=== PATIENT | female | born 1980 | race Native Hawaiian/Other Pacific Islander ===

== ENCOUNTER 2023-03-23 17:46 | Emergency (ER) | payer OTHER ==
[~2023-03-23] VITALS: Ht 154.9 cm; Wt 68.0 kg
[2023-03-23 18:04] LABS: BASOPHILS % (AUTO) 0 % (0-10); EOSINOPHILS # (AUTO) 0.1 10^3/uL (0.0-0.3); EOSINOPHILS % (AUTO) 1 % (0-10); HEMATOCRIT 39 % (35-52); LYMPHOCYTES # (AUTO) 2.5 10^3/uL (1.0-4.0); LYMPHOCYTES % (AUTO) 33 % (12-44); MEAN CORPUSCULAR HEMOGLOBIN 32 pg (25-34); MEAN CORPUSCULAR HGB CONC 34 g/dL (32-36); MEAN CORPUSCULAR VOLUME 95 fL (80-99); MEAN PLATELET VOLUME 8.6 fL (9.0-12.2); MONOCYTES # (AUTO) 0.5 10^3/uL (0.0-1.0); MONOCYTES % (AUTO) 6 % (0-12); NEUTROPHILS # (AUTO) 4.5 10^3/uL (1.8-7.8); NEUTROPHILS % (AUTO) 60 % (42-75); PLATELET COUNT 341 10^3/uL (130-400); WHITE BLOOD COUNT 7.6 10^3/uL (4.3-11.0)
[2023-03-23] MEDS ORDERED: LACTATED RINGERS 1,000 ML 1,000 ML IV ONE ×3 (18:15→21:15)
[2023-03-23] MEDS ORDERED: PANTOPRAZOLE INJECTION 40 MG VIAL IV ONE (18:15)
[2023-03-23] MEDS ORDERED: ONDANSETRON INJECTION 4 MG/2 ML (SDV) IVP ONE (18:15)
--- NOTE | 2023-03-23 18:23 | ED Abdominal Pain ---
General Chief Complaint: Abdominal/GI Problems Stated Complaint: SEVERE STOMACH PAIN, BARIATRIC PT Nursing Triage Note: PT AMB TO RM 8 WITH CC OF ABD PAIN THAT STARTED AT NOON TODAY. PT STATES THAT HER UPPER ABD IS HARD TO THE TOUCH AND SWOLLEN. PT REPORTS THAT SHE HAD BYPASS SURGERY 1 YR AGO. TYLENOL WAS TAKEN TODAY AT 1430. Source of Information: Patient History of Present Illness Date Seen by Provider: Mar 23, 2023 Time Seen by Provider: 17:55 Initial Comments PT ARRIVES VIA POV FROM HOME PT STATES SHE IS HAVING "EXTREME UPPER ABDOMINAL PAIN" SINCE NOON TODAY--BEGAN AFTER EATING LUNCH SHE HAD A LITTLE PAIN AFTER EATING DINNER LAST NIGHT, BUT IT WENT AWAY SHE FELT FINE THIS MORNING ON WAKING, AND WAS FINE UNTIL SHE ATE LUNCH + NAUSEA, NO VOMITING HAD A NORMAL BM TODAY, NO BLACK/BLOODY/TARRY STOOLS NO URINARY SYMPTOMS AND VOIDING A NORMAL AMOUNT NO FEVER PAIN IS WORSE WITH LAYING FLAT/OUTSTRETCHED, WALKING, MOVEMENTS BETTER IF LAYING CURLED UP ON HER SIDE. 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, SHE HAS PROTEIN S DEFICIENCY WITH DVT'S AND IS ON ELIQUIS SHE HAS HAD PANCREATITIS, DIVERTICULITIS, CHRONIC GENERALIZED PAIN, GERD SHE SMOKES SOMETIMES, OCCASIONAL ETOH--HAD SOME LAST NIGHT AROUND 10 PM, USES THC ON DAILY BASIS SHE JUST MOVED HERE 01/29/23 FROM [facility] PCP--PLANNING ON ESTABLISHING WITH [facility] Allergies and Home Medications Allergies Coded Allergies: Penicillins (Verified Allergy, Unknown, 03/23/23) latex (Verified Allergy, Unknown, 03/23/23) Review of Systems Review of Systems Constitutional: no symptoms reported Respiratory: No Symptoms Reported Cardiovascular: No Symptoms Reported Gastrointestinal: See HPI, Abdominal Pain; Denies Constipated, Denies Diarrhea; Nausea Genitourinary: No Symptoms Reported Musculoskeletal: no symptoms reported Skin: no symptoms reported Psychiatric/Neurological: No Symptoms Reported Endocrine: No Symptoms Reported Hematologic/Lymphatic: No Symptoms Reported Past [id number]-[id number] Hx Patient Social History Tobacco Use?: Yes Tobacco type used: Cigarettes Smoking Status: Current Someday Smoker Substance use?: Yes Substance type: Marijuana Substance frequency: Daily Alcohol Use?: Yes Alcohol Frequency: Couple times a week Seasonal Allergies Seasonal Allergies: Yes Past Medical History Surgery/Hospitalization HX: BYPASS SURGERY, PROTEIN S, , GALLBLADDER, 4 ILIAC STENTS Surgeries: Yes Abdominal, Section, Gallbladder, Tubal Ligation, Vascular Surgery Respiratory: No Cardiac: Yes (DVT'S; 4 STENTS IN LEFT ILIAC AND FEMORAL VEING) Deep Vein Thrombosis, Peripheral Vascular Neurological: No Reproductive Disorders: No 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 Genitourinary: No Gastrointestinal: Yes (OSKAR-EN-Y GASTRIC BYPASS; CHOLECYSTECTOMY) Gastroesophageal Reflux, Diverticulosis, Pancreatitis, Gall Bladder Disease Musculoskeletal: Yes (CHRONIC GENERALIZED PAIN ) Arthritis Endocrine: No HEENT: Yes (CHRONIC SINUSITIS) Cancer: No Psychosocial: Yes Anxiety, Depression Integumentary: No Blood Disorders: Yes (BLOOD CLOTS; PROTEIN S DEFICIENCY) Family Medical History SOCIAL HISTORY: -SMOKING--"SOMETIMES" -ETOH--COUPLE OF TIMES A WEEK -DRUGS--DAILY MARIJUANA PAST SURGICAL HISTORY: -4 STENTS IN LEFT ILIAC AND FEMORAL ARTERIES -CHOLECYSTECTOMY -OSKAR-EN-Y GASTRIC BYPASS 03/2022 IN [place], [place] - X 2 -BILATERAL TUBAL LIGATION Physical Exam Vital Signs Vital Signs - First Documented 03/23/23 18:02 Temp 36.1 Pulse 76 B/P (MAP) 131/90 (104) Pulse Ox 100 O2 Delivery Room Air Capillary Refill : Height/Weight/BMI Height: '" Weight: lbs. oz. kg; 28.00 BMI Method: General Appearance: WD/WN, no apparent distress, other (SMILING, SITTING UP BELARUSIAN-STYLE AND LAYS BACK FLAT ON HER BACK WITH LEGS STILL CROSSED BELARUSIAN-STYLE WITHOUT DIFFICULTY. WALKS UPRIGHT WITHOUT DIFFICULTY. ) HEENT: PERRL/EOMI; No scleral icterus (R), No scleral icterus (L) Neck: normal inspection Respiratory: normal breath sounds, no respiratory distress, no accessory muscle use Cardiovascular: regular rate, rhythm, no murmur Gastrointestinal: normal bowel sounds, soft; No distended, No guarding, No rebound; tenderness (EPIGASTRIC AND LEFT UPPER QUADRANT TENDERNESS. 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2 fL Immature Granulocyte % (Auto) 0 % Neutrophils (%) (Auto) 60 42-75 % Lymphocytes (%) (Auto) 33 12-44 % Monocytes (%) (Auto) 6 0-12 % Eosinophils (%) (Auto) 1 0-10 % Basophils (%) (Auto) 0 0-10 % Neutrophils # (Auto) 4.5 1.8-7.8 10^3/uL Lymphocytes # (Auto) 2.5 1.0-4.0 10^3/uL Monocytes # (Auto) 0.5 0.0-1.0 10^3/uL Eosinophils # (Auto) 0.1 0.0-0.3 10^3/uL Basophils # (Auto) 0.0 0.0-0.1 10^3/uL Immature Granulocyte # (Auto) 0.0 0.0-0.1 10^3/uL Prothrombin Time 13.7 12.2-14.7 SEC INR Comment 1.0 0.8-1.4 Activated Partial Thromboplast Time 31 24-35 SEC Sodium Level 139 135-145 MMOL/L Potassium Level 4.1 3.6-5.0 MMOL/L Chloride Level 102 98-107 MMOL/L Carbon Dioxide Level 26 21-32 MMOL/L Anion Gap 11 5-14 MMOL/L Blood Urea Nitrogen 16 7-18 MG/DL Creatinine 0.70 0.60-1.30 MG/DL Estimat Glomerular Filtration Rate 111 BUN/Creatinine Ratio 23 Glucose Level 97 70-105 MG/DL Calcium Level 9.4 8.5-10.1 MG/DL Corrected Calcium 9.2 8.5-10.1 MG/DL Magnesium Level 1.9 1.6-2.4 MG/DL Total Bilirubin 0.3 0.1-1.0 MG/DL Aspartate Amino Transf (AST/SGOT) 25 5-34 U/L Alanine Aminotransferase (ALT/SGPT) 25 0-55 U/L Alkaline Phosphatase 78 40-136 U/L Total Protein 7.0 6.4-8.2 GM/DL Albumin 4.2 3.2-4.5 GM/DL Amylase Level 64 25-125 U/L Lipase 35 8-78 U/L Serum Test, Qualitative NEGATIVE NEGATIVE Serum Alcohol < 10 <10 MG/DL Urine Color YELLOW Urine Clarity CLEAR Urine pH 7.5 5-9 Urine Specific [place] 1.025 H 1.016-1.022 Urine Protein NEGATIVE NEGATIVE Urine Glucose (UA) NEGATIVE NEGATIVE Urine Ketones 2+ H NEGATIVE Urine Nitrite NEGATIVE NEGATIVE Urine Bilirubin NEGATIVE NEGATIVE Urine Urobilinogen 0.2 < = 1.0 MG/DL Urine Leukocyte Esterase NEGATIVE NEGATIVE Urine RBC (Auto) NEGATIVE NEGATIVE Urine RBC NONE /HPF Urine WBC NONE /HPF Urine Squamous Epithelial Cells 5-10 /HPF Urine Crystals PRESENT H /LPF Urine Amorphous Sediment FEW ALEXUS PHOSPHATE H /LPF Urine Bacteria TRACE /HPF Urine Casts NONE /LPF Urine Mucus NEGATIVE /LPF Urine Culture Indicated NO Urine Opiates Screen NEGATIVE NEGATIVE Urine Oxycodone Screen NEGATIVE NEGATIVE Urine Methadone Screen NEGATIVE NEGATIVE Urine Barbiturates Screen NEGATIVE NEGATIVE Ur Tricyclic Antidepressants Screen NEGATIVE NEGATIVE Urine Phencyclidine Screen NEGATIVE NEGATIVE Urine Amphetamines Screen NEGATIVE NEGATIVE Urine Methamphetamines Screen NEGATIVE NEGATIVE Urine Benzodiazepines Screen NEGATIVE NEGATIVE Urine Cocaine Screen NEGATIVE NEGATIVE Urine Cannabinoids Screen NEGATIVE NEGATIVE My Orders Orders - WILMA KING DO Ed Iv/Invasive Line Start (03/23/23 17:57) Monitor-Rhythm Ecg Trace Only (03/23/23 17:57) Amylase (03/23/23 17:57) Cbc And Automated Diff (03/23/23 17:57) Comprehensive Metabolic Panel (03/23/23 17:57) Hcg,Qualitative Serum (03/23/23 17:57) Lipase (03/23/23 17:57) Ua Culture If Indicated (03/23/23 17:57) Alcohol (03/23/23 18:05) Drug Screen Stat (Urine) (03/23/23 18:05) Magnesium (03/23/23 18:05) Protime With Inr (03/23/23 18:05) Partial Thromboplastin Time (03/23/23 18:05) Ed Iv/Invasive Line Start (03/23/23 18:05) Lactated Ringers 1,000 Ml (Lactated Ring (03/23/23 18:15) Ondansetron Injection (Ondansetron Inj (03/23/23 18:15) Pantoprazole Injection (Pantoprazole Inj (03/23/23 18:15) Ct Abdomen/Pelvis W (03/23/23 18:55) Iohexol Injection (Omnipaque 350 Mg/Ml 1 (03/23/23 19:00) Ns (Ivpb) 100 Ml (Sodium Chloride 0.9% 1 (03/23/23 19:00) Medications Given in ED Current Medications Medications Dose Ordered Sig/Brenda Route Start Time Stop Time Status Last Admin Dose Admin Iohexol 100 ml ONCE ONCE IV 03/23/23 19:00 03/23/23 19:01 DC 03/23/23 19:35 80 ML Lactated Ringer's 1,000 ml @ 0 mls/hr Q0M ONCE IV 03/23/23 18:15 03/23/23 18:16 DC 03/23/23 18:20 0 MLS/HR Ondansetron HCl 4 mg ONCE ONCE IVP 03/23/23 18:15 03/23/23 18:16 DC 03/23/23 18:20 4 MG Pantoprazole 40 mg ONCE ONCE IV 03/23/23 18:15 03/23/23 18:16 DC 03/23/23 18:20 40 MG Sodium Chloride 100 ml ONCE ONCE IV 03/23/23 19:00 03/23/23 19:01 DC 03/23/23 19:35 80 ML Vital Signs/I&O 03/23/23 18:02 Temp 36.1 Pulse 76 B/P (MAP) 131/90 (104) Pulse Ox 100 O2 Delivery Room Air Blood Pressure Mean: 104 Progress Progress Note : Progress Note VITALS ON ARRIVAL: TEMP 36.1=97.0, HR 76, RR 18, BP 131/90, O2 SAT 100% ON ROOM AIR GIVEN: -IV FLUIDS -ZOFRAN -PROTONIX LABS: -CBC NORMAL -CMP NORMAL -MG NORMAL -AMYLASE/LIPASE NORMAL -HCG NEGATIVE -UA 3+ KETONES OTHERWISE NORMAL -UDS NEGATIVE -ETOH NEGATIVE CT ABDOMEN/PELVIS-- Diagnostic Imaging Comments CT ABDOMEN/PELVIS--PER RADIOLOGIST REPORT AT 2030 FINDINGS: Lung bases are clear. The heart is normal in size. The liver demonstrates no focal lesion. Cholecystectomy clips are noted. The spleen appears normal. The pancreas is unremarkable. The adrenal glands are normal. The kidneys demonstrate no enhancing lesion and no hydronephrosis. The stomach demonstrates postsurgical changes with anastomotic sutures. No distended loops of bowel are seen. There is mild edema in the mesentery. There is moderate stool in the cecum. No significant free fluid or free air is seen. There is swirling in the mesentery near the superior mesenteric vein with collection of contrast seen in the superior mesenteric vein and marked narrowing noted in the central mesentery (Image 67 series 2). There may be a linear filling defect in the superior mesenteric vein (image 26 series 601). There is a stent in the left iliac vein. Patency is not evaluated on this exam. No acute osseous abnormality is seen. There is a left fat-containing inguinal hernia. IMPRESSION: 1. Postsurgical changes in the stomach with swirling of mesentery and vasculature centrally. There is marked narrowing of the superior mesenteric vein with delayed passage of contrast, and possible early development of a partial thrombus. 2. Mild mesenteric edema. 3. Moderate stool in the cecum. 4. Stent in the left iliac vein, patency is not well evaluated on this exam. Reviewed: Reviewed by Me Departure Impression Primary Impression: Abdominal pain Additional Impression: Mesenteric vein thrombosis Departure-Patient Inst. Referrals: [facility] (PCP/Family) Primary Care Physician WILMA KING DO Mar 23, 2023 18:23
[2023-03-23 18:31] LABS: ALBUMIN 4.2 GM/DL (3.2-4.5); POTASSIUM 4.1 MMOL/L (3.6-5.0)
[2023-03-23 18:32] LABS: CALCIUM 9.4 MG/DL (8.5-10.1)
[2023-03-23 18:36] LABS: BILIRUBIN,TOTAL 0.3 MG/DL (0.1-1.0)
[2023-03-23 18:37] LABS: CREATININE SERUM 0.7 MG/DL (0.60-1.30)
[2023-03-23 18:54] LABS: CLARITY,URINE CLEAR; COLOR,URINE YELLOW
[2023-03-23 18:55] LABS: AMORPHOUS SEDIMENT,UR FEW AMOR PHOSPHATE /LPF; BACTERIA,URINE TRACE /HPF; BILIRUBIN,URINE NEGATIVE (NEGATIVE); GLUCOSE, URINE (UA) NEGATIVE (NEGATIVE); KETONES,URINE 2+ (NEGATIVE); LEUKOCYTE ESTERASE ,URINE NEGATIVE (NEGATIVE); NITRITE,URINE NEGATIVE (NEGATIVE); PH,URINE 7.5 (5-9); PROTEIN,URINE NEGATIVE (NEGATIVE)
[2023-03-23 18:55] LABS: PROTHROMBIN TIME PATIENT 13.7 SEC (12.2-14.7)
[2023-03-23 18:57] LABS: MAGNESIUM 1.9 MG/DL (1.6-2.4)
[2023-03-23] MEDS ORDERED: IOHEXOL 350 MG/ML 100 ML (OMNIPAQUE 350) VIAL IV ONE (19:00)
[2023-03-23] MEDS ORDERED: NS 100 ML (IVPB) BAG IV ONE (19:00)
[2023-03-23 19:01] LABS: AMPHETAMINE SCREEN, URINE NEGATIVE (NEGATIVE); BARBITURATE SCREEN URINE NEGATIVE (NEGATIVE); CANNABINOID SCREEN, URINE NEGATIVE (NEGATIVE); COCAINE SCREEN URINE NEGATIVE (NEGATIVE); METHADONE STAT NEGATIVE (NEGATIVE); OPIATE SCREEN URINE NEGATIVE (NEGATIVE); OXYCODONE STAT NEGATIVE (NEGATIVE); TRICYCLIC ANTIDEPRESSANTS SCRE NEGATIVE (NEGATIVE)
--- NOTE | 2023-03-23 20:14 | Diagnostic Imaging Report ---
PROCEDURE: CT abdomen and pelvis with contrast. TECHNIQUE: Multiple contiguous axial images were obtained through the abdomen and pelvis after administration of intravenous contrast. Auto Exposure Controls were utilized during the CT exam to meet ALARA standards for radiation dose reduction. All CT scans use one or more of the following dose optimizing techniques: automated exposure control, MA and/or KvP adjustment based on patient size and exam type or iterative reconstruction. INDICATION: Epigastric pain. Bypass surgery. History of cholecystectomy. COMPARISON: None. FINDINGS: Lung bases are clear. The heart is normal in size. The liver demonstrates no focal lesion. Cholecystectomy clips are noted. The spleen appears normal. The pancreas is unremarkable. The adrenal glands are normal. The kidneys demonstrate no enhancing lesion and no hydronephrosis. The stomach demonstrates postsurgical changes with anastomotic sutures. No distended loops of bowel are seen. There is mild edema in the mesentery. There is moderate stool in the cecum. No significant free fluid or free air is seen. There is swirling in the mesentery near the superior mesenteric vein with collection of contrast seen in the superior mesenteric vein and marked narrowing noted in the central mesentery (Image 67 series 2). There may be a linear filling defect in the superior mesenteric vein (image 26 series 601). There is a stent in the left iliac vein. Patency is not evaluated on this exam. No acute osseous abnormality is seen. There is a left fat-containing inguinal hernia. IMPRESSION: 1. Postsurgical changes in the stomach with swirling of mesentery and vasculature centrally. There is marked narrowing of the superior mesenteric vein with delayed passage of contrast, and possible early development of a partial thrombus. 2. Mild mesenteric edema. 3. Moderate stool in the cecum. 4. Stent in the left iliac vein, patency is not well evaluated on this exam. Dictated by: Dictated on workstation # [id number]
[2023-03-23] MEDS ORDERED: fentaNYL INJECTION 100 MCG/2 ML VIAL IVP ONE (20:45)
[2023-03-23] MEDS ORDERED: HEParin DRIP 25000 UNIT/500ML 500 ML IV ONE (21:45)
[2023-03-23] MEDS ORDERED: HEParin 1000 UNIT/ML (10ML VIAL) FOR BOLUS IV ONE (21:45)
[2023-03-23] MEDS ORDERED: morphine INJ 4 MG/ML 1 ML (VIAL/SYRINGE) IVP ONE (22:15)
[2023-03-23 23:24] VITALS: BP 120/82
== END 2023-03-23 22:44 | disposition short-term general hospital (02) ==
LOC: ER 17:52
DX: K55.059 Acute (reversible) ischemia of intestine, part and extent unspecified (principal); F17.210 Nicotine dependence, cigarettes, uncomplicated; Z90.49 Acquired absence of other specified parts of digestive tract; Z91.040 Latex allergy status; Z98.84 Bariatric surgery status; Z86.718 Personal history of other venous thrombosis and embolism; Z79.01 Long term (current) use of anticoagulants
CPT/HCPCS: 74177; 80053; 80306; 81000; 82150; 83605; 83690; 83735; 84703; 85025; 85610; 85730; 93041; 96361; 96365; 96375; 99285; G0480; 36415; 80320